=== PATIENT | female | born 1950 | race Caucasian/White ===

== ENCOUNTER 2019-03-04 07:08 | Observation (INO) | payer MEDICARE, OTHER ==
[2019-03-04] MEDS ORDERED: DUONEB 0.5-3 MG/3 ml Neb IH ONE ×2 (07:27→07:29)
[2019-03-04] MEDS ORDERED: solu-MEDROL 125 MG IV ONE (07:29)
[2019-03-04] MEDS ORDERED: Sodium Chloride 0.9% 1000 ML 1,000 ML IV SCH (07:30)
[2019-03-04] MEDS ORDERED: Sodium Chloride 0.9% 1000 ML 1,000 ML ONE (07:34)
[2019-03-04] MEDS ORDERED: solu-MEDROL 125 MG ONE (07:34)
[2019-03-04 07:37] LABS: Lactic Acid 0.8 (0.4-2.0); VBG BASE EXCESS 3.5 (-2.0-2.0); VBG CARBOXYHEMOGLOBIN 3.1 % T HGB (0.0-6.9); VBG HCO3- 30.5 meq/L (22-28); VBG HEMOGLOBIN 15.5; VBG O2 SATURATION 59.1 (95-100); VBG POTASSIUM 4.3 (3.5-5.1); VBG pH 7.36 (7.32-7.42)
[2019-03-04] MEDS ORDERED: Levofloxacin 500MG/100ML D5W 500 MG/100 ML BAG IV STA (07:55)
[2019-03-04] MEDS ORDERED: Levofloxacin 500MG/100ML D5W 500 MG/100 ML BAG IV ONE (08:00)
--- NOTE | 2019-03-04 08:03 | ERPHSYRPT ---
- History of Present Illness Time Seen by Provider: 03/04/19 07:18 Source: patient Exam Limitations: clinical condition Patient Subjective Stated Complaint: david has history of COPD and emphysema, short of breath, pain in left side of kneck and shoulder Triage Nursing Assessment: pt alert and oreitnedx3, ableto ambulate by self, audible wheezes bilateral, inspiratory and expiratory wheezes diminished in lower lobes, upper airway Physician History: PATIENT WITH A HISTORY OF COPD, AND HYPERTENSION COMPLAINS OF A PRODUCTIVE COUGH GRE[place] [employer]IATED WITH DIFFICULTY BREATHING AND SHORTNESS OF BREATH OVER THE PAST 3 WEEKS, PROGRESSIVELY WORSE X 3 DAYS. DENIES CHEST PAIN, FEVER OR CHILLS. Timing/Duration: week(s) Activities at Onset: activity Severity of Dyspnea-Max: severe Severity of Dyspnea-Current: severe Possible Cause: occasional episodes Modifying Factors: Improves With: activity, coughing Associated Symptoms: cough, productive cough International travel in last 2 weeks: No Allergies/Adverse Reactions: acetaminophen [From Percocet] Allergy (Verified 03/04/19 07:23) oxycodone [From Percocet] Allergy (Verified 03/04/19 07:23) Hx Tetanus, Diphtheria Vaccination/Date Given: Yes Hx Influenza Vaccination/Date Given: Yes Hx Pneumococcal Vaccination/Date Given: Yes Immunizations Up to Date: Yes - Review of Systems Constitutional: No Fever, No Chills Eyes: No Symptoms Ears, Nose, & Throat: No Symptoms Respiratory: Cough, Dyspnea on Exertion (MEYER), Wheezing, No Dyspnea Cardiac: No Symptoms, No Chest Pain, No Edema, No Syncope Abdominal/Gastrointestinal: No Symptoms, No Abdominal Pain, No Nausea, No Vomiting, No Diarrhea Genitourinary Symptoms: No Symptoms, No Dysuria Musculoskeletal: No Symptoms, No Back Pain, No Neck Pain Skin: No Rash Neurological: No Dizziness, No Focal Weakness, No Sensory Changes Psychological: No Symptoms Endocrine: No Symptoms All Other Systems: Reviewed and Negative - Past Medical History Pertinent Past Medical History: Yes Respiratory History: COPD, Emphysema, Pneumonia GI Medical History: GERD Psycho-Social History: Anxiety - Past Surgical History Past Surgical History: Yes - Social History Smoking Status: Current every day smoker Drug Use: none - Female History Hx Now: No - Nursing Vital Signs Nursing Vital Signs: Initial Vital Signs Temperature 97.3 F 03/04/19 07:10 Pulse Rate 87 03/04/19 07:10 Respiratory Rate 26 H 03/04/19 07:10 Blood Pressure 198/115 03/04/19 07:10 O2 Sat by Pulse Oximetry 89 L 03/04/19 07:10 Pain Scale Pain Intensity 0 - Physical Exam General Appearance: moderate distress, other (LABORED BREATHING, ACCESSORY MUSCLE USE) Ears, Nose, Throat Exam: hearing grossly normal Neck Exam: normal inspection, non-tender Respiratory Exam: diminished breath sounds, accessory muscle use, prolonged expirations, wheezing (PROLONGED EXPIRATORY WHEEZES) Cardiovascular/Chest Exam: normal heart sounds Abdominal/Gastrointestinal Exam: soft, normal bowel sounds Peripheral Pulses Exam: carotid (R): 2+, carotid (L): 2+, femoral (R): 2+, femoral (L): 2+, dorsalis-pedis (R): 2+, dorsalis-pedis (L): 2+ Neurologic Exam: alert, oriented x 3, cooperative, card maker II-XII nml as tested Skin Exam: normal color, warm SpO2 Interpretation: normal SpO2: 96 O2 Delivery: Room Air - Course EKG Interpreted by Me: NORMAL AXIS, NORMAL INTERVALS (RATE 85) - Radiology Exams Chest X-ray Interpretation: Interpreted by me (NO EVIDENCE OF INFILTRATES, MILD DEXTROSCOLIOSIS) Ordered Tests: Active Orders 24 hr Category Date Time Status EKG-ER Only STAT Care 03/04/19 07:29 Active IV Insertion STAT Care 03/04/19 07:29 Active Oxygen-ED Only Nasal Cannula 2 lpm Care 03/04/19 07:29 Active CHEST 1 VIEW (PORTABLE) Stat Exams 03/04/19 07:30 Taken BLOOD CULTURE Stat Lab 03/04/19 08:05 Received CBC W DIFF Stat Lab 03/04/19 07:29 Completed CMP Stat Lab 03/04/19 07:29 Completed Lactic Acid Stat Lab 03/04/19 07:30 Completed MAGNESIUM Stat Lab 03/04/19 07:29 Completed PROTIME WITH INR Stat Lab 03/04/19 07:29 Completed Sputum Culture [CULTURE,SPUTUM] Stat Lab 03/04/19 07:29 Received TROPONIN Q3H Lab 03/04/19 07:29 Completed TROPONIN Q3H Lab 03/04/19 10:30 Ordered TROPONIN Q3H Lab 03/04/19 13:30 Ordered TROPONIN Q3H Lab 03/04/19 16:30 Ordered TROPONIN Q3H Lab 03/04/19 19:30 Ordered VENOUS BLOOD GAS Stat Lab 03/04/19 07:30 Completed Peak Expiratory Flow Rate ONCE RT 03/04/19 07:29 Active Respiratory Therapy Assessment DAILY RT 03/04/19 07:29 Active Medication Summary Generic Name Dose Route Start Last Admin Trade Name Freq PRN Reason Stop Dose Admin Albuterol Sulfate 10 mg 03/04/19 08:45 03/04/19 08:40 Proventil Solution 2.5 Mg/0.5 Ml IH 04/03/19 08:44 10 mg UD DEO Administration Sodium Chloride 1,000 mls @ 250 mls/hr 03/04/19 07:30 03/04/19 07:42 Sodium Chloride 0.9% 1000 Ml IV 04/03/19 07:29 250 mls/hr .Q4H DEO Administration Discontinued Medications Generic Name Dose Route Start Last Admin Trade Name Freq PRN Reason Stop Dose Admin Albuterol Sulfate 10 mg 03/04/19 08:20 Proventil 2.5 Mg/3 Ml Neb IH 03/04/19 08:21 STAT ONE Albuterol Sulfate Confirm 03/04/19 08:28 Proventil Solution 2.5 Mg/0.5 Ml Administered 03/04/19 08:29 Dose 10 mg IH .STK-MED ONE Albuterol/Ipratropium Confirm 03/04/19 07:27 Duoneb 0.5-3 Mg/3 Ml Neb Administered 03/04/19 07:28 Dose 3 ml IH .STK-MED ONE Albuterol/Ipratropium 3 ml 03/04/19 07:29 03/04/19 07:32 Duoneb 0.5-3 Mg/3 Ml Neb IH 03/04/19 07:30 3 ml STAT ONE Administration Levofloxacin/Dextrose 500 mg in 100 mls @ 100 mls/hr 03/04/19 07:55 03/04/19 08:05 Levofloxacin 500mg/100ml D5w IV 03/04/19 08:54 100 mls/hr STAT STA 100 mls/hr Administration Levofloxacin/Dextrose Confirm 03/04/19 08:00 Levofloxacin 500mg/100ml D5w Administered 03/04/19 08:01 Dose 500 mg in 100 mls @ ud IV .STK-MED ONE Methylprednisolone Sodium Succinate 125 mg 03/04/19 07:29 03/04/19 07:42 Solu-Medrol 125 Mg IV 03/04/19 07:30 125 mg STAT ONE Administration Methylprednisolone Sodium Succinate Confirm 03/04/19 07:34 Solu-Medrol 125 Mg Administered 03/04/19 07:35 Dose 125 mg .ROUTE .STK-MED ONE Sodium Chloride Confirm 03/04/19 08:29 Sodium Chloride 3 Ml Ud Nebules Administered 03/04/19 08:30 Dose 9 ml IH .STK-MED ONE Sodium Chloride 10 ml 03/04/19 08:38 Sodium Chloride 3 Ml Ud Nebules IH 03/04/19 08:39 STAT ONE Lab/Rad Data: Laboratory Result Diagrams 03/04/19 07:29 03/04/19 07:29 Laboratory Results 03/04/19 03/04/19 03/04/19 Range/Units 08:15 07:30 07:29 WBC (4.0-10.5) K/mm3 RBC (4.1-5.4) M/mm3 Hgb (12.0-16.0) gm/dl Hct (35-47) % MCV (78-100) fl MCH (26-32) pg MCHC (32-36) g/dl RDW (11.5-14.0) % Plt Count (150-450) K/mm3 MPV (6-9.5) fl Gran % (36.0-66.0) % Eos # (Auto) (0-0.5) Absolute Lymphs (auto) (1.0-4.6) Absolute Monos (auto) (0.0-1.3) Lymphocytes % (24.0-44.0) % Monocytes % (0.0-12.0) % Eosinophils % (0.00-5.0) % Basophils % (0.0-0.4) % Absolute Granulocytes (1.4-6.9) Basophils # (0-0.4) PT (9.95-12.35) SECONDS INR (0.8-3.0) pO2/FiO2 Ratio 28.0 % VBG pH 7.36 (7.32-7.42) VBG pCO2 at Pat Temp 54 (42-55) mm/Hg VBG pO2 at Pat Temp 29 (25-40) mm/Hg VBG HCO3 30.5 H* (22-28) meq/L VBG O2 Sat ([place]) 59.1 L (95-100) VBG Base Excess 3.5 H (-2.0-2.0) VBG Hemoglobin 15.5 VBG Carboxyhemoglobin 3.1 (0.0-6.9) % T HGB POC Potassium 4.3 (3.5-5.1) Sodium (137-145) mmol/L Potassium (3.5-5.1) mmol/L Chloride (98-107) mmol/L Carbon Dioxide (22-30) mmol/L Anion Gap (5-15) MEQ/L BUN (7-17) mg/dL Creatinine (0.52-1.04) mg/dL Estimated GFR ML/MIN Glucose (74-106) mg/dL Lactic Acid 0.8 (0.4-2.0) Calcium (8.4-10.2) mg/dL Magnesium (1.6-2.3) mg/dL Total Bilirubin (0.2-1.3) mg/dL AST (14-36) U/L ALT (0-35) U/L Alkaline Phosphatase (38-126) U/L Troponin I < 0.012 (0.000-0.034) ng/mL Serum Total Protein (6.3-8.2) g/dL Albumin (3.5-5.0) g/dL Influenza Type A Ag NEGATIVE (NEGATIVE) Influenza Type B Ag NEGATIVE (NEGATIVE) RSV (PCR) NEGATIVE (Negative) 03/04/19 03/04/19 03/04/19 Range/Units 07:29 07:29 07:29 WBC 8.8 (4.0-10.5) K/mm3 RBC 4.65 (4.1-5.4) M/mm3 Hgb 15.1 (12.0-16.0) gm/dl Hct 44.9 (35-47) % MCV 96.6 (78-100) fl MCH 32.5 H (26-32) pg MCHC 33.6 (32-36) g/dl RDW 12.9 (11.5-14.0) % Plt Count 330 (150-450) K/mm3 MPV 9.9 H (6-9.5) fl Gran % 59.4 (36.0-66.0) % Eos # (Auto) 0.87 H (0-0.5) Absolute Lymphs (auto) 2.00 (1.0-4.6) Absolute Monos (auto) 0.67 (0.0-1.3) Lymphocytes % 22.8 L (24.0-44.0) % Monocytes % 7.6 (0.0-12.0) % Eosinophils % 9.9 H (0.00-5.0) % Basophils % 0.3 (0.0-0.4) % Absolute Granulocytes 5.22 (1.4-6.9) Basophils # 0.03 (0-0.4) PT 11.3 (9.95-12.35) SECONDS INR 1.00 (0.8-3.0) pO2/FiO2 Ratio % VBG pH (7.32-7.42) VBG pCO2 at Pat Temp (42-55) mm/Hg VBG pO2 at Pat Temp (25-40) mm/Hg VBG HCO3 (22-28) meq/L VBG O2 Sat ([place]) (95-100) VBG Base Excess (-2.0-2.0) VBG Hemoglobin VBG Carboxyhemoglobin (0.0-6.9) % T HGB POC Potassium (3.5-5.1) Sodium 142 (137-145) mmol/L Potassium 4.3 (3.5-5.1) mmol/L Chloride 102 (98-107) mmol/L Carbon Dioxide 30 (22-30) mmol/L Anion Gap 14.2 (5-15) MEQ/L BUN 10 (7-17) mg/dL Creatinine 0.77 (0.52-1.04) mg/dL Estimated GFR > 60.0 ML/MIN Glucose 115 H (74-106) mg/dL Lactic Acid (0.4-2.0) Calcium 10.3 H (8.4-10.2) mg/dL Magnesium 2.1 (1.6-2.3) mg/dL Total Bilirubin 0.50 (0.2-1.3) mg/dL AST 30 (14-36) U/L ALT 27 (0-35) U/L Alkaline Phosphatase 116 (38-126) U/L Troponin I (0.000-0.034) ng/mL Serum Total Protein 8.4 H (6.3-8.2) g/dL Albumin 4.7 (3.5-5.0) g/dL Influenza Type A Ag (NEGATIVE) Influenza Type B Ag (NEGATIVE) RSV (PCR) (Negative) - Progress Progress Note: 03/04/19 08:03 ADMINISTERED DUONEB AEROSOL TX, IV [id number], AFTER BLOOD CULTURES LEVAQUIN 500MG IVPB, LACTIC ACID 0.8 Blood Culture(s) Obtained: Yes Antibiotics given: Yes (LEVAQUIN 500MG IVPB) Discussed with Dr.: Bruno (DISCUSSED WITH DR BRUNO AT 0920 FOR OBSERVATION) - Departure Departure Disposition: Observation Clinical Impression: ACUTE EXACERBATION COPD Condition: Stable Critical Care Time: No Referrals: DOCTOR,NO FAMILY [Primary Care Provider] -
[2019-03-04 08:18] LABS: BASOPHIL % 0.3 % (0.0-0.4); Basophil (Absolute #) 0.03 (0-0.4); Eosinophil % 9.9 % (0.00-5.0); Eosinophil (Absolute #) 0.87 (0-0.5); Granulocyte Absolute (ANC) 5.22 (1.4-6.9); Granulocytes % 59.4 % (36.0-66.0); Hematocrit 44.9 % (35-47); Hemoglobin 15.1 gm/dl (12.0-16.0); Lymphocytes % 22.8 % (24.0-44.0); Mean Cell Volume 96.6 fl (78-100); Mean Corpuscular Hemoglobin 32.5 pg (26-32); Mean Corpuscular Hgb Concent. 33.6 g/dl (32-36); Mean Platelet Volume 9.9 fl (6-9.5); Monocyte (Absolute #) 0.67 (0.0-1.3); Monocytes % 7.6 % (0.0-12.0); Platelet Count 330 K/mm3 (150-450); Red Blood Count 4.65 M/mm3 (4.1-5.4); Red Cell Distribution Width 12.9 % (11.5-14.0); White Blood Count 8.8 K/mm3 (4.0-10.5)
[2019-03-04] MEDS ORDERED: PROVENTIL 2.5 MG/3 ML NEB IH ONE (08:20)
[2019-03-04 08:23] LABS: PROTIME 11.3 SECONDS (9.95-12.35)
[2019-03-04] MEDS ORDERED: PROVENTIL Solution 2.5 MG/0.5 ML IH ONE (08:28)
[2019-03-04] MEDS ORDERED: Sodium Chloride 3 ML UD NEBULES IH ONE ×2 (08:29→08:38)
[2019-03-04 08:32] LABS: ALBUMIN 4.7 g/dL (3.5-5.0); ALKALINE PHOSPHATASE 116 U/L (38-126); ANION GAP 14.2 MEQ/L (5-15); BLOOD UREA NITROGEN 10 mg/dL (7-17); CHLORIDE 102 mmol/L (98-107); Calcium 10.3 mg/dL (8.4-10.2); Carbon Dioxide 30 mmol/L (22-30); Creatinine 1 0.77 mg/dL (0.52-1.04); Glucose 115 mg/dL (74-106); MAGNESIUM 2.1 mg/dL (1.6-2.3); Potassium 4.3 mmol/L (3.5-5.1); SGOT/AST 30 U/L (14-36); SGPT/ALT 27 U/L (0-35); SODIUM 142 mmol/L (137-145); Total Protein 8.4 g/dL (6.3-8.2)
[2019-03-04] MEDS: PROVENTIL Solution 2.5 MG/0.5 ML IH SCH ×2 (08:39→08:40)
[2019-03-04 08:51] LABS: INFLUENZA A NEGATIVE (NEGATIVE); INFLUENZA B NEGATIVE (NEGATIVE); RESPIRATORY SYNCTIAL VIRUS NEGATIVE (Negative)
--- NOTE | 2019-03-04 09:34 | XRAY ---
Indication: Cough. Short of breath. Comparison: None Portable chest hyperinflated and clear with incidental right upper lobe calcified granuloma. Heart is not enlarged. Bony thorax intact with osteopenia and old left humeral neck fracture. Impression: Nonacute hyperinflated chest with chronic features.
[2019-03-04] MEDS ORDERED: TYLENOL 325 MG PO PRN (09:39)
[2019-03-04] MEDS ORDERED: Xopenex 1.25 MG/0.5 ML UD NEBULE IH PRN (09:39)
[2019-03-04] MEDS ORDERED: Toprol Xl 50 MG PO SCH (11:00)
[2019-03-04] MEDS: Levofloxacin 500MG/100ML D5W 500 MG/100 ML BAG IV SCH (11:18)
[2019-03-04] MEDS: ECOTRIN 81 MG PO SCH (11:22)
[2019-03-04] MEDS: Sodium Chloride 0.9% 1000 ML 1,000 ML IV SCH (11:22)
[2019-03-04] MEDS: solu-MEDROL 125 MG IV SCH ×3 (12:28→23:11)
[2019-03-04] MEDS: Nicoderm CQ 21 MG TOP SCH (14:59)
[2019-03-04] MEDS ORDERED: MEDICATION INTERVENTION MC SCH (15:15)
[2019-03-04] MEDS: Protonix 40MG Tablet PO SCH (15:19)
[2019-03-04] MEDS: DUONEB 0.5-3 MG/3 ml Neb IH SCH ×4 (15:25→23:00)
[2019-03-04] MEDS: PATIENT OWN MEDICATION IH SCH ×2 (18:58)
[2019-03-04] MEDS ORDERED: Advair Hfa 230/21 Mcg COMMON CANISTER IH SCH (19:00)
[2019-03-04] MEDS ORDERED: [UNRECOGNIZED DRUG - OTHER] IH SCH (22:00)
[2019-03-04] MEDS ORDERED: BUDESONIDE IH SCH (22:00)
[2019-03-04] MEDS ORDERED: FORMOTEROL FUMARATE IH SCH (22:00)
[2019-03-05] MEDS: DUONEB 0.5-3 MG/3 ml Neb IH SCH ×3 (03:05→11:12)
[2019-03-05] MEDS: solu-MEDROL 125 MG IV SCH ×2 (06:07→12:01)
[2019-03-05] MEDS: Sodium Chloride 0.9% 1000 ML 1,000 ML IV SCH (06:11)
[2019-03-05] MEDS ORDERED: PATIENT OWN MEDICATION IH SCH (07:00)
[2019-03-05] MEDS ORDERED: MEDICATION ON HOLD MC SCH (07:00)
[2019-03-05] MEDS ORDERED: Spiriva 18 Mcg/Cap Inhaler IH SCH (07:00)
[2019-03-05] MEDS: PATIENT OWN MEDICATION IH SCH ×2 (07:18)
[2019-03-05] MEDS: Levofloxacin 500MG/100ML D5W 500 MG/100 ML BAG IV SCH (09:20)
[2019-03-05] MEDS: Nicoderm CQ 21 MG TOP SCH (09:23)
[2019-03-05] MEDS: ECOTRIN 81 MG PO SCH (09:23)
[2019-03-05] MEDS: Protonix 40MG Tablet PO SCH (09:23)
[2019-03-05] MEDS ORDERED: NON-FORMULARY ITEM (Esomeprazole Magnesium [Nexium] 40 MG) PO SCH (10:00)
[2019-03-05] MEDS ORDERED: Toprol Xl 50 MG PO SCH (10:00)
[2019-03-05 12:37] VITALS: O2SAT 94
--- NOTE | 2019-03-05 13:15 | PCM.HP ---
History of Present Illness - Chief Complaint Chief Complaint: c/o cough and shortness of breath for 2-3 days History of Present Illness: is a 68 year old female came to ER with c/o greenish yellow phlegm with fever and cough for 2-3 days - Review of Systems Constitutional: No Fever, No Chills Eyes: No Symptoms Ears, Nose, & Throat: No Symptoms Respiratory: Cough, Short Of Breath, Wheezing Cardiac: No Chest Pain, No Edema, No Syncope Abdominal/Gastrointestinal: No Abdominal Pain, No Nausea, No Vomiting, No Diarrhea Genitourinary Symptoms: No Dysuria Musculoskeletal: No Back Pain, No Neck Pain Skin: No Rash Neurological: No Dizziness, No Focal Weakness, No Sensory Changes Psychological: No Symptoms Endocrine: No Symptoms Hematologic/Lymphatic: No Symptoms Immunological/Allergic: No Symptoms Medications & Allergies Home Medications: Home Medication List Aspirin EC 81 mg [Ecotrin 81 mg] 81 mg PO DAILY 03/04/19 [History Confirmed 03/04/19] Budesonide/Formoterol Fumarate [Symbicort 160-4.5 Mcg Inhaler] 1 inh IH BID 01/16 [History Confirmed 03/04/19] Esomeprazole Magnesium [Nexium] 40 mg PO DAILY 03/04/19 [History Confirmed 03/04] Metoprolol Succinate 50 mg PO DAILY 03/04/19 [History Confirmed 03/04/19] Tiotropium [place] [Spiriva] 1 inh IH DAILY 03/04/19 [History Confirmed 03/04/19 ] Allergies/Adverse Reactions: Allergies Allergy/AdvReac Type Severity Reaction Status Date / Time acetaminophen [From Percocet] Allergy Verified 03/04/19 07:23 oxycodone [From Percocet] Allergy Verified 03/04/19 07:23 - Past Medical History Past Medical History: Yes Neurological History: No Pertinent History ENT History: Cataracts Cardiac History: Hypertension Respiratory History: COPD, Emphysema, Pneumonia Endocrine Medical History: No Pertinent History Musculoskelatal History: Fractures GI Medical History: GERD History: No Pertinent History Pyscho-Social History: Anxiety Reproductive Disorders: Other Comment: Hysterectomy (cysts)1990, left Shoulder and two toes on left foot broken during a fall - Female History Are you now?: No - Past Surgical History Past Surgical History: Yes Neuro Surgical History: No Pertinent History Cardiac History: No Pertinent History Respiratory Surgery: No Pertinent History GI Surgical History: No Pertinent History Genitourinary Surgical Hx: No Pertinent History Musculskeletal Surgical Hx: Orthopedic Surgery Female Surgical History: Hysterectomy Other Surgical History: Right Shoulder fracture 2017 - Social History Smoking Status: Current every day smoker How long have you smoked: 56 yrs Exposure to second hand smoke: No Alcohol: None Drug Use: none - Physical Exam Vital Signs: Vital Signs - 24 hr Temp Pulse Resp BP Pulse Ox 03/05/19 12:36 20 94 L 03/05/19 11:17 88 18 95 03/05/19 07:21 91 H 18 94 L 03/05/19 07:13 97.7 F 68 18 130/66 97 03/05/19 03:48 98.4 F 85 18 133/66 91 L 03/05/19 03:05 85 18 91 L 03/04/19 23:48 98.5 F 72 20 133/66 92 L 03/04/19 23:00 72 20 92 L 03/04/19 20:06 97.7 F 83 20 149/70 93 L 03/04/19 19:02 88 18 94 L 03/04/19 15:56 98.8 F 81 22 142/66 94 L 03/04/19 15:32 83 20 94 L 03/04/19 15:31 95 Oxygen-Last 24 hours O2 Percentage 2 Liters = 28% O2 Percentage 2 Liters = 28% O2 Percentage 2 Liters = 28% O2 Percentage 2 Liters = 28% General Appearance: no apparent distress, alert Neurologic Exam: alert, oriented x 3, cooperative, normal mood/affect, nml cerebellar function, nml station & gait, sensation nml, No motor deficits Eye Exam: PERRL/EOMI, eyes nml inspection Ears, Nose, Throat Exam: normal ENT inspection, TMs normal, pharynx normal, moist mucous membranes Neck Exam: normal inspection, non-tender, supple, full range of motion Respiratory Exam: crackles/rales, wheezing, No respiratory distress Cardiovascular Exam: regular rate/rhythm, normal heart sounds, normal peripheral pulses Gastrointestinal/Abdomen Exam: soft, normal bowel sounds, No tenderness, No mass Back Exam: normal inspection, normal range of motion, No CVA tenderness, No vertebral tenderness Extremity Exam: normal inspection, normal range of motion, pelvis stable Skin Exam: normal color, warm, dry, No rash Lymphatic Exam: No adenopathy Results - Labs Lab/Micro Results: Lab Results-Last 24 Hours 03/04/19 03/04/19 03/04/19 Range/Units 13:34 16:23 20:02 Troponin I < 0.012 < 0.012 < 0.012 (0.000-0.034) ng/mL - Radiology Impressions Radiology Exams & Impressions: Radiology Procedures Category Date Time Status CHEST 1 VIEW (PORTABLE) Stat Exams 03/04/19 07:30 Completed - Other Procedures and Tests Respiratory Therapy 03/04/19 19:02 Respiratory MDI UD 03/05/19 07:00 Peak Expiratory Flow Rate DAILY Assessment/Plan (1) Acute exacerbation of chronic bronchitis Current Visit: Yes Status: Acute Assessment & Plan: Last Vital Signs Temp 97.7 F 03/05/19 07:13 Pulse 88 03/05/19 11:17 Resp 20 03/05/19 12:36 BP 130/66 03/05/19 07:13 Pulse Ox 94 L 03/05/19 12:36 Allergies acetaminophen [From Percocet] Allergy (Verified 03/04/19 07:23) oxycodone [From Percocet] Allergy (Verified 03/04/19 07:23) Active Medications Acetaminophen (Tylenol 325 Mg) 650 mg PO Q4H PRN PRN PRN Reason: PAIN AND/OR FEVER Stop: 04/03/19 09:38 Albuterol/Ipratropium (Duoneb 0.5-3 Mg/3 Ml Neb) 3 ml IH Q4HRT [facility] Stop: 04/03/19 10:59 Last Admin: 03/05/19 11:12 Dose: 3 ml Aspirin (Ecotrin 81 Mg) 81 mg PO DAILY [facility] Stop: 04/03/19 10:59 Last Admin: 03/05/19 09:23 Dose: 81 mg Levofloxacin/Dextrose (Levofloxacin 500mg/100ml D5w) 500 mg in 100 mls @ 100 mls/hr IV Q24H10 [facility] Stop: 04/03/19 09:59 Last Admin: 03/05/19 09:20 Dose: 100 mls/hr Sodium Chloride (Sodium Chloride 0.9% 1000 Ml) 1,000 mls @ 50 mls/hr IV .Q20H [facility] Stop: 04/03/19 09:44 Last Admin: 03/05/19 06:11 Dose: 50 mls/hr Levalbuterol HCl (Xopenex 1.25 Mg/0.5 Ml Ud Nebule) 1.25 mg IH Q2HPRN PRN PRN Reason: DIFFICULTY BREATHING Stop: 04/03/19 09:38 Methylprednisolone Sodium Succinate (Solu-Medrol 125 Mg) 80 mg IV Q6HT [facility] Stop: 04/03/19 11:59 Last Admin: 03/05/19 12:01 Dose: 80 mg Metoprolol Succinate (Toprol Xl 50 Mg) 50 mg PO DAILY [facility] Stop: 04/04/19 09:59 Last Admin: 03/05/19 09:25 Dose: 50 mg Nicotine (Nicoderm Cq 21 Mg) 21 mg TOP Q24H10 [facility] Stop: 04/03/19 14:29 Last Admin: 03/05/19 09:23 Dose: 21 mg Pantoprazole Sodium (Protonix 40mg Tablet) 40 mg PO DAILY [facility] Stop: 04/03/19 15:59 Last Admin: 03/05/19 09:23 Dose: 40 mg Spiriva Inhaler 1 each IH 0700 [facility] Stop: 04/04/19 06:59 Last Admin: 03/05/19 07:18 Dose: 1 each Symbicort Inhaler (160/4.5) 1 each IH BIDRT [facility] Stop: 04/03/19 18:59 Last Admin: 03/05/19 07:18 Dose: 1 each Intake & Output 03/05/19 03/06/19 11:59 11:59 Intake Total 2967 360 Output Total 1300 300 Balance 1667 60 Weight 56.1 kg Orders 03/04/19 14:30 Nicotine 21 mg [Nicoderm CQ 21 MG] 21 mg TOP Q24H10 03/04/19 15:31 Pulse Oximetry ROUTINE 03/04/19 16:00 PANTOPRAZOLE 40 mg Tablet [Protonix 40MG Tablet] 40 mg PO DAILY 03/04/19 19:00 Patient Own Med [Patient Own Medication] 1 each IH BIDRT 03/04/19 19:02 Respiratory MDI UD 03/04/19 Dinner Regular Diet 03/05/19 07:00 Patient Own Med [Patient Own Medication] 1 each IH 0700 Peak Expiratory Flow Rate DAILY 03/05/19 08:56 Telemetry q6h 03/05/19 10:00 Metoprolol Succinate 50 mg [Toprol Xl 50 MG] 50 mg PO DAILY Lab Tests 03/04/19 03/04/19 03/04/19 13:34 16:23 20:02 Troponin I < 0.012 < 0.012 < 0.012 Code(s): J20.9 - ACUTE BRONCHITIS, UNSPECIFIED; J42 - UNSPECIFIED CHRONIC BRONCHITIS
[2019-03-05 15:30] VITALS: BP 128/80; PULSE 74
--- NOTE | 2019-03-06 10:08 | PCM.DS ---
Discharge Summary Date of Admission: 03/04/19 10:35 Admitting Physician: LUPE BRUNO Primary Care Provider: NO FAMILY DOCTOR Allergies Allergies acetaminophen [From Percocet] Allergy (Verified 03/04/19 07:23) oxycodone [From Percocet] Allergy (Verified 03/04/19 07:23) Hospital Summary - Hospital Course Hospital Course: Chief Complaint Diagnosis c/o cough and shortness of breath for 2-3 days Allergies Allergy/AdvReac Type Severity Reaction Status Date / Time acetaminophen [From Percocet] Allergy Verified 03/04/19 07:23 oxycodone [From Percocet] Allergy Verified 03/04/19 07:23 Vital Signs (Last 24 hours) Temp Pulse Resp BP Pulse Ox 03/05/19 15:29 97.8 F 74 20 128/80 94 L 03/05/19 12:36 20 94 L 03/05/19 11:17 88 18 95 Home Medications Medication Instructions Recorded Confirmed Last Taken Type Aspirin EC 81 mg [Ecotrin 81 81 mg PO DAILY 03/04/19 03/04/19 Unknown History mg] Budesonide/Formoterol Fumarate 1 inh IH BID 03/04/19 03/04/19 Unknown History [Symbicort 160-4.5 Mcg Inhaler] Esomeprazole Magnesium [Nexium] 40 mg PO DAILY 03/04/19 03/04/19 Unknown History Metoprolol Succinate 50 mg PO DAILY 03/04/19 03/04/19 Unknown History Tiotropium [place] [Spiriva] 1 inh IH DAILY 03/04/19 03/04/19 Unknown History Levofloxacin [Levaquin] 500 mg PO DAILY #5 tablet 03/05/19 Unknown Rx Methylprednisolone Packet 4 mg PO UD 21 Days packet 03/05/19 Unknown Rx [Medrol Dosepack] Current Medications Discontinued Medications Generic Name Dose Route Start Last Admin Trade Name Freq PRN Reason Stop Dose Admin Acetaminophen 650 mg 03/04/19 09:39 Tylenol 325 Mg PO 04/03/19 09:38 Q4H PRN PRN PAIN AND/OR FEVER Albuterol Sulfate 10 mg 03/04/19 08:20 03/04/19 11:18 Proventil 2.5 Mg/3 Ml Neb IH 03/04/19 08:21 Not Given STAT ONE Albuterol Sulfate Confirm 03/04/19 08:28 Proventil Solution 2.5 Mg/0.5 Ml Administered 03/04/19 08:29 Dose 10 mg IH .STK-MED ONE Albuterol Sulfate 10 mg 03/04/19 08:45 03/04/19 08:40 Proventil Solution 2.5 Mg/0.5 Ml IH 04/03/19 08:44 10 mg UD DEO Administration Albuterol/Ipratropium Confirm 03/04/19 07:27 Duoneb 0.5-3 Mg/3 Ml Neb Administered 03/04/19 07:28 Dose 3 ml IH .STK-MED ONE Albuterol/Ipratropium 3 ml 03/04/19 07:29 03/04/19 07:32 Duoneb 0.5-3 Mg/3 Ml Neb IH 03/04/19 07:30 3 ml STAT ONE Administration Albuterol/Ipratropium 3 ml 03/04/19 11:00 03/05/19 11:12 Duoneb 0.5-3 Mg/3 Ml Neb IH 04/03/19 10:59 3 ml Q4HRT DEO Administration Aspirin 81 mg 03/04/19 11:00 03/05/19 09:23 Ecotrin 81 Mg PO 04/03/19 10:59 81 mg DAILY DEO Administration Sodium Chloride 1,000 mls @ 250 mls/hr 03/04/19 07:30 03/04/19 07:42 Sodium Chloride 0.9% 1000 Ml IV 04/03/19 07:29 250 mls/hr .Q4H DEO Administration Levofloxacin/Dextrose 500 mg in 100 mls @ 100 mls/hr 03/04/19 07:55 03/04/19 08:05 Levofloxacin 500mg/100ml D5w IV 03/04/19 08:54 100 mls/hr STAT STA 100 mls/hr Administration Levofloxacin/Dextrose Confirm 03/04/19 08:00 Levofloxacin 500mg/100ml D5w Administered 03/04/19 08:01 Dose 500 mg in 100 mls @ ud IV .STK-MED ONE Levofloxacin/Dextrose 500 mg in 100 mls @ 100 mls/hr 03/04/19 10:00 03/05/19 09:20 Levofloxacin 500mg/100ml D5w IV 04/03/19 09:59 100 mls/hr Q24H10 DEO Administration Sodium Chloride 1,000 mls @ 50 mls/hr 03/04/19 09:45 03/05/19 06:11 Sodium Chloride 0.9% 1000 Ml IV 04/03/19 09:44 50 mls/hr .Q20H DEO Administration Sodium Chloride Confirm 03/04/19 07:34 Sodium Chloride 0.9% 1000 Ml Administered 03/04/19 07:35 Dose 1,000 mls @ ud .ROUTE .STK-MED ONE Levalbuterol HCl 1.25 mg 03/04/19 09:39 Xopenex 1.25 Mg/0.5 Ml Ud Nebule IH 04/03/19 09:38 Q2HPRN PRN DIFFICULTY BREATHING Methylprednisolone Sodium Succinate 125 mg 03/04/19 07:29 03/04/19 07:42 Solu-Medrol 125 Mg IV 03/04/19 07:30 125 mg STAT ONE Administration Methylprednisolone Sodium Succinate Confirm 03/04/19 07:34 Solu-Medrol 125 Mg Administered 03/04/19 07:35 Dose 125 mg .ROUTE .STK-MED ONE Methylprednisolone Sodium Succinate 80 mg 03/04/19 12:00 03/05/19 12:01 Solu-Medrol 125 Mg IV 04/03/19 11:59 80 mg Q6HT DEO Administration Metoprolol Succinate 50 mg 03/04/19 11:00 03/04/19 11:22 Toprol Xl 50 Mg PO 04/03/19 10:59 50 mg BID DEO Administration Metoprolol Succinate 50 mg 03/05/19 10:00 03/05/19 09:25 Toprol Xl 50 Mg PO 04/04/19 09:59 50 mg DAILY DEO Administration Miscellaneous Information 1 each 03/04/19 15:15 Medication Intervention 04/03/19 15:14 .RT TO CHECK ON DEO Miscellaneous Information 1 [facility] [place] 03/05/19 07:00 Medication On Hold 04/04/19 06:59 DAILY DEO Nicotine 21 mg 03/04/19 14:30 03/05/19 09:23 Nicoderm Cq 21 Mg TOP 04/03/19 14:29 21 mg Q24H10 DEO Administration Pantoprazole Sodium 40 mg 03/04/19 16:00 03/05/19 09:23 Protonix 40mg Tablet PO 04/03/19 15:59 40 mg DAILY DEO Administration Spiriva Inhaler 1 each 03/05/19 07:00 03/05/19 07:18 IH 04/04/19 06:59 1 each 0700 DEO Administration Symbicort Inhaler 1 each 03/04/19 19:00 03/05/19 07:18 160/4.5 IH 04/03/19 18:59 1 each BIDRT DEO Administration Fluticasone/Salmeterol 2 puff 03/04/19 19:00 Advair Hfa 230/21 Mcg Common Canister* IH 04/03/19 18:59 BIDRT DEO Sodium Chloride Confirm 03/04/19 08:29 Sodium Chloride 3 Ml Ud Nebules Administered 03/04/19 08:30 Dose 9 ml IH .STK-MED ONE Sodium Chloride 10 ml 03/04/19 08:38 03/04/19 11:19 Sodium Chloride 3 Ml Ud Nebules IH 03/04/19 08:39 Not Given STAT ONE Tiotropium [place] 1 ea 03/05/19 07:00 Spiriva 18 Mcg/Cap Inhaler IH 04/04/19 06:59 0700 DEO Intake & Output (Last 24 hours) 03/03/19 03/04/19 03/05/19 03/06/19 11:59 11:59 11:59 11:59 Intake Total 2967 600 Output Total 1300 1200 Balance 1667 -600 Weight 54.5 kg 56.1 kg Microbiology Results (Last 24 hours) 03/04/19 08:05 Blood Blood Culture Gram Stain - Pending 03/04/19 08:05 Blood Blood Culture - Preliminary NO GROWTH TO DATE 03/04/19 08:05 Blood Blood Culture Gram Stain - Pending 03/04/19 08:05 Blood Blood Culture - Preliminary NO GROWTH TO DATE Orders (Last 24 hours) Category Date Time Status Metoprolol Succinate 50 mg [Toprol Xl 50 MG] Med 03/05/19 10:00 Discontinued 50 mg PO DAILY Patient Care Notes (Last 24 hours) 03/05/19 15:29 Nursing Note by Thelma Ramirez IV removed for discharge, discharge education provided any questions answered. Pt went home with and portable o2. Initialized on 03/05/19 15:29 - END OF NOTE 03/05/19 15:20 Nursing Note by Fabian Mathew with Dr Bruno. Patient to be discharged home today. Initialized on 03/05/19 15:20 - END OF NOTE 03/05/19 11:55 Nursing Note by Thelma Ramirez portable o2 delivered to pt. Initialized on 03/05/19 11:55 - END OF NOTE - Vitals & Intake/Output Vital Signs: Vital Signs Temperature 97.8 F 03/05/19 15:29 Pulse Rate 74 03/05/19 15:29 Respiratory Rate 20 03/05/19 15:29 Blood Pressure 128/80 03/05/19 15:29 O2 Sat by Pulse Oximetry 94 L 03/05/19 15:29 Oxygen-Last Documented O2 Percentage 2 Liters = 28% Intake & Output: Intake & Output 03/03/19 03/04/19 03/05/19 03/06/19 11:59 11:59 11:59 11:59 Intake Total 2967 600 Output Total 1300 1200 Balance 1667 -600 Weight 54.5 kg 56.1 kg - Lab Result Diagrams: 03/04/19 07:29 03/04/19 07:29 Micro Results-Entire Visit: Microbiology 03/04/19 08:05 Blood Culture - Preliminary Blood NO GROWTH TO DATE 03/04/19 08:05 Blood Culture - Preliminary Blood NO GROWTH TO DATE - Procedures and Test Procedures and Tests throughout Hospitalization: Therapy Orders & Screens 03/04/19 07:29 Peak Expiratory Flow Rate ONCE Comment: Reason For Exam: Respiratory Therapy Assessment DAILY Comment: 03/04/19 09:34 Oxygen Nasal Cannula 2 lpm Comment: 03/04/19 09:36 Respiratory Therapy Consult ROUTINE Comment: Reason For Exam: 03/04/19 19:02 Respiratory MDI UD Comment: Diagnosis: Acute Exacerbation of COPD 03/05/19 07:00 Peak Expiratory Flow Rate DAILY Comment: Reason For Exam: Diagnosis: Acute Exacerbation of COPD Discharge Exam General Appearance: no apparent distress, alert Neurologic Exam: alert, oriented x 3, cooperative, normal mood/affect, nml cerebellar function, sensation nml, No motor deficits Eye Exam: PERRL, EOMI, eyes nml inspection Ears, Nose, Throat Exam: normal ENT inspection, pharynx normal, moist mucous membranes Neck Exam: normal inspection, non-tender, supple, full range of motion Respiratory Exam: normal breath sounds, lungs clear, No respiratory distress Cardiovascular Exam: regular rate/rhythm, normal heart sounds Gastrointestinal/Abdomen Exam: soft, No tenderness, No mass Pelvic Exam: deferred Rectal Exam: deferred Back Exam: normal inspection, normal range of motion, No CVA tenderness, No vertebral tenderness Extremity Exam: normal inspection, normal range of motion Skin Exam: normal color, warm, dry Final Diagnosis/Problem List - Final Discharge Diagnosis/Problem (1) Acute exacerbation of chronic bronchitis Status: Resolved Assessment & Plan: Last Vital Signs Temp 97.8 F 03/05/19 15:29 Pulse 74 03/05/19 15:29 Resp 20 03/05/19 15:29 BP 128/80 03/05/19 15:29 Pulse Ox 94 L 03/05/19 15:29 Allergies acetaminophen [From Percocet] Allergy (Verified 03/04/19 07:23) oxycodone [From Percocet] Allergy (Verified 03/04/19 07:23) Intake & Output 03/05/19 03/06/19 11:59 11:59 Intake Total 2967 600 Output Total 1300 1200 Balance 1667 -600 Weight 56.1 kg Microbiology 03/04/19 08:05 Blood Blood Culture - Preliminary NO GROWTH TO DATE 03/04/19 08:05 Blood Blood Culture - Preliminary NO GROWTH TO DATE Code(s): J20.9 - ACUTE BRONCHITIS, UNSPECIFIED; J42 - UNSPECIFIED CHRONIC BRONCHITIS - Discharge Discharge Date: 03/05/19 Disposition: Home, Self-Care Condition: Stable Prescriptions: New Levofloxacin [Levaquin] 500 mg PO DAILY #5 tablet Methylprednisolone Packet [Medrol Dosepack] 4 mg PO UD 21 Days packet Continue Aspirin EC 81 mg [Ecotrin 81 mg] 81 mg PO DAILY Metoprolol Succinate 50 mg PO DAILY Budesonide/Formoterol Fumarate [Symbicort 160-4.5 Mcg Inhaler] 1 inh IH BID Tiotropium [place] [Spiriva] 1 inh IH DAILY Esomeprazole Magnesium [Nexium] 40 mg PO DAILY Instructions: Exacerbation of COPD (DC) Additional Instructions: Call [place] when you are home to set up home o2 delivery
== END 2019-03-05 15:26 | disposition home or self-care (01) ==
LOC: ED 07:08 → MED SURG 10:35
PROVIDERS: ADMIT General Practice; ATTEND General Practice
DX: J44.1 Chronic obstructive pulmonary disease with (acute) exacerbation (principal); J20.9 Acute bronchitis, unspecified; J44.0 Chronic obstructive pulmonary disease with (acute) lower respiratory infection; I10 Essential (primary) hypertension; Z79.899 Other long term (current) drug therapy; F17.200 Nicotine dependence, unspecified, uncomplicated
CPT/HCPCS: 36415; 71045; 80053; 82805; 83605; 83735; 84484; 85025; 85610; 87040; 87070; 87631; 93005; 93268; 94150; 94640; 94760; 96360; 96361; 96365; 96374; 99285; G0378; J1956; J2930; A9270-GY